=== PATIENT | male | born 1955 | race Caucasian/White ===

== ENCOUNTER 2024-02-24 20:27 | Inpatient (IN) ==
--- NOTE | 2024-02-24 21:05 | Emergency Department Note ---
Impression & Plan Chest pain ADMIT ED Provider Note HPI: History obtained from patient. The patient is a 68-year-old gentleman with history of coronary artery disease, status post triple bypass CABG at [facility] in [place] in 2021, who presents to the emergency department with a chief complaint of lower chest pain. Patient states he has had some pain across the lower portion of his chest for about the past 6 hours. Patient states it has been relatively constant, mild to moderate in nature. Patient denies any nausea or vomiting. On arrival here to the ED the patient is hemodynamically stable, he is saturating well on room air. ROS: - Per HPI Differential Diagnosis: Acute coronary syndrome, gastritis, acute cholecystitis, acute pancreatitis, esophagitis, amongst other potential pathologies. *Outpatient medications and allergy history reviewed. PE: General: Alert HEENT: Normocephalic, trachea midline Eyes: Extraocular eye movement is intact, no scleral erythema Pulmonary: Clear to auscultation bilaterally, no wheezing Cardio: Regular rate and rhythm GI: Abdomen is soft to palpation : No suprapubic tenderness MSK: No evidence of trauma or malformation of the extremities, no edema Skin: No evidence of rash Neuro: Alert, no focal deficits Psychiatric: Cooperative INDEPENDENT INTERPRETATIONS: manager environmental health: (As interpreted by myself): - An order was placed for continuous cardiac monitoring - Patient was noted to be in sinus rhythm with a rate of 70 EKG: (As interpreted by myself): Rate: 60 Rhythm: Normal sinus rhythm Intervals: Within normal limits ST changes: No ST elevation Time: 2035 Chest x-ray: (As interpreted by myself): No acute disease Interventions provided in ED: -IV morphine, IV Zofran, aspirin, GI cocktail Medical Decision Making: IV was established and lab work obtained, patient was placed on collar baster. Lab work shows a mild leukocytosis at 12.19, hemoglobin is normal, platelet count is normal, CMP does not show any critical findings. Troponin is negative x 1. EKG per my interpretation does not show any evidence of any acute ischemic changes. Patient was given IV morphine and IV Zofran here in the ED with improvement in his pain although he did not have complete resolution of his pain. He was given a GI cocktail without any change in his pain. Patient's abdomen is soft and nontender, he has no transaminitis, bilirubin is normal, low suspicion for biliary pathology. In addition his lipase is normal, low suspicion for pancreatitis. Pain is more in the lower chest area as opposed to the epigastric area, given his history of coronary artery disease, I did discuss a period of observation and delta troponin the patient was in agreement. Delta troponin was obtained and is negative. On my reassessment after this, the patient states he is not pain-free. We did discuss admission versus discharge and at this time following discussion with his the patient would like to be admitted to the hospital for further management. I did discuss the patient's presentation with the on-call hospitalist, Dr. Rodriguez, and the patient was placed for admission in stable condition for high risk chest pain. Consultants/Discussions held with other healthcare providers: -Hospitalist, Dr. Rodriguez Disposition discussion held by myself with: -Patient and at bedside Diagnosis: 1. Chest pain, acute, nonspecific 2. History of coronary artery disease status post CABG Disposition: Admission José Ortiz DO Emergency Medicine Past Med/Surg History Problem List (Updated 02/25/24 @ 00:08 by José Ortiz DO) Chest pain (Acute) Corneal abrasion, left (Acute) Social History Smoking Status: Never smoker Feels Safe at Home: Yes Allergies Allergies Allergy/AdvReac Type Severity Reaction Status Date / Time No Known Allergies Allergy Verified 02/24/24 21:10 Home Meds Home Medications Medication Instructions Recorded Confirmed aspirin 81 mg tablet,delayed 81 mg PO HS 02/24/24 02/24/24 release atenolol 25 mg tablet 25 mg PO QPM 02/24/24 02/24/24 atorvastatin 40 mg tablet 40 mg PO QPM 02/24/24 02/24/24 sertraline 100 mg tablet 100 mg PO QAM 02/24/24 02/24/24 sildenafil 50 mg tablet 50 mg PO DIRECTED PRN Sexual 02/24/24 02/24/24 Activity Results & Data (ED) Vital Signs Vital Signs - 24 hr 02/24/24 20:34 02/24/24 20:37 02/24/24 20:37 Temperature 36.8 C Temperature Source Oral Pulse Rate 60 Pulse Rate [Apical] 58 L Pulse Rhythm Regular Pulse Rhythm [Apical] Regular Pulse Strength Normal Pulse Strength [Apical] Normal Respiratory Rate 20 18 Respiratory Effort / Characteristics Non-Labored Spontaneous Non-Labored Spontaneous Respiratory Depth Normal Normal Respiratory Pattern Regular Blood Pressure 153/83 H Blood Pressure [Right Arm] 153/83 H Blood Pressure Mean 106 Blood Pressure Mean [Right Arm] 106 Blood Pressure Position [Right Arm] Lying Pulse Oximetry 97 98 98 Oxygen Delivery Method Room Air Room Air Room Air Sepsis Recent Fever Within 48 Hours No Sepsis New/Unexplained Change in Mental Status N/A Sepsis Action Taken by Nursing No Action Required 02/24/24 20:37 02/24/24 20:39 02/24/24 23:00 Temperature Temperature Source Pulse Rate 58 L 60 Pulse Rate [Apical] 66 Pulse Rhythm Regular Pulse Rhythm [Apical] Regular Pulse Strength Pulse Strength [Apical] Normal Respiratory Rate 18 18 Respiratory Effort / Characteristics Non-Labored Spontaneous Respiratory Depth Normal Respiratory Pattern Regular Blood Pressure Blood Pressure [Right Arm] 155/80 H Blood Pressure Mean Blood Pressure Mean [Right Arm] 105 Blood Pressure Position [Right Arm] Lying Pulse Oximetry 98 99 Oxygen Delivery Method Room Air Room Air Sepsis Recent Fever Within 48 Hours Sepsis New/Unexplained Change in Mental Status Sepsis Action Taken by Nursing Laboratory Data 02/24/24 20:43 02/24/24 20:43 Lab Results 02/24/24 02/24/24 Range/Units 20:43 22:40 WBC 12.19 H (4.8-10.8) K/ul RBC 5.18 (4.70-6.10) M/uL Hgb 15.7 (14.0-18.0) g/dl Hct 46.7 (42.0-52.0) % MCV 90.2 (80.0-100.0) fL MCH 30.3 (25.0-34.0) pg MCHC 33.6 (32.0-36.0) g/dL RDW Std Deviation 41.7 (36.4-46.3) fL RDW Coeff of Rocio 12.7 (11.5-14.5) % Plt Count 227 (130-400) K/uL MPV 9.3 L (9.4-12.4) fL Immature Gran % (Auto) 0.5 % Neut % (Auto) 81.1 % Lymph % (Auto) 11.0 % [place] % (Auto) 6.7 % Eos % (Auto) 0.5 % Baso % (Auto) 0.2 % Neut # (Auto) 9.89 H (1.40-6.50) K/uL Lymph # (Auto) 1.34 (1.20-3.40) K/uL [place] # (Auto) 0.82 H (0.11-0.59) K/uL Eos # (Auto) 0.06 (0.00-0.50) K/uL Baso # (Auto) 0.02 (0.00-0.20) K/uL Immature Gran # (Auto) 0.06 (0.01-0.20) K/uL Sodium 140 (136-145) mmol/L Potassium 4.4 (3.5-5.1) mmol/L Chloride 104 (98-107) mmol/L Carbon Dioxide 29 (21-32) mmol/L Anion Gap 7 (3-11) BUN 18 (6-23) mg/dl Creatinine 0.94 (0.6-1.4) mg/dl Est Cr Clr Drug Dosing 78.5 ml/min Est GFR ( Amer) 96.8 ml/min Est GFR (Non-Af Amer) 83.6 ml/min BUN/Creatinine Ratio 19.1 (10-20) Glucose 112 H (70-99(Fasting)) mg/dl Calcium 9.9 (8.6-10.3) mg/dl Magnesium 1.9 (1.7-2.4) mg/dl Total Bilirubin 1.0 (0.2-1.0) mg/dl AST 19 (13-39) U/L ALT 22 (7-52) U/L Alkaline Phosphatase 87 (34-104) U/L Troponin I High Sens 4.8 6.3 (0-20) pg/ml Total Protein 7.2 (6.0-8.3) gm/dl Albumin 4.7 (3.4-5.0) gm/dl Globulin 2.5 (2.5-4.0) gm/dl Albumin/Globulin Ratio 1.9 (0.9-2) Lipase 32 (11-82) U/L Administered Medications Discontinued Medications Al Hydrox/Mg Hydrox/Simethicone (Aluminum/Magnesium Susp 30 Ml Udc) 15 ml PO NOW STA Stop: 02/24/24 21:30 Last Admin: 02/24/24 21:39 Dose: 15 ml Documented By: IDD Aspirin (Aspirin Chew 324 Mg) 324 mg PO NOW STA Stop: 07/04/24 21:05 Last Admin: 02/24/24 21:19 Dose: 324 mg Documented By: IDD Morphine Sulfate (Morphine Sulfate 4 Mg/Ml 1 Ml Carp\Vial) 4 mg IV NOW STA Stop: 02/24/24 21:03 Last Admin: 02/24/24 21:20 Dose: 4 mg Documented By: IDD Ondansetron HCl (Ondansetron Inj 2 Mg/Ml 2 Ml Vial) 4 mg IV NOW STA Stop: 02/24/24 21:03 Last Admin: 02/24/24 21:19 Dose: 4 mg Documented By: NATALIAD Discharge Plan Visit Data Chief Complaint: Chest Pain Stated Complaint: CHEST PAIN, HAD TRIPLE BYPASS COUPLE YEARS AGO ED Provider: José Ortiz Discharge Problem: Chest pain Forms Stand Alone Forms: [facility] [employer] Prescriptions Prescriptions: No Action atorvastatin 40 mg tablet 40 mg PO QPM sildenafil 50 mg tablet 50 mg PO DIRECTED PRN (Reason: Sexual Activity) sertraline 100 mg tablet 100 mg PO QAM atenolol 25 mg tablet 25 mg PO QPM aspirin 81 mg Tablet,Delayed Release (Dr/Ec) 81 mg PO HS Referrals Referrals: PCP,NO [Physician] - Discharge Problem: Chest pain Qualifiers: Chest pain type: unspecified Qualified Code(s): R07.9 - Chest pain, unspecified
[2024-02-24 21:17] LABS: Albumin Globulin Ratio 1.9 (0.9-2); Albumin Level 4.7 gm/dl (3.4-5.0); BUN Creatinine Ratio 19.1 (10-20); Calcium 9.9 mg/dl (8.6-10.3); Creatinine Clr Calc Pharmacy 78.5 ml/min; Est GFR (African American) 96.8 ml/min; Est GFR (Non-African American) 83.6 ml/min; Globulin 2.5 gm/dl (2.5-4.0); Magnesium 1.9 mg/dl (1.7-2.4); Potassium 4.4 mmol/L (3.5-5.1); Total Protein 7.2 gm/dl (6.0-8.3)
[2024-02-24 21:19] LABS: Basophils # (auto) 0.02 K/uL (0.00-0.20); Basophils % (auto) 0.2 %; Eosinophils # (auto) 0.06 K/uL (0.00-0.50); Eosinophils % (auto) 0.5 %; Hematocrit (blood only) 46.7 % (42.0-52.0); Hemoglobin 15.7 g/dl (14.0-18.0); Immature Granulocytes # (auto) 0.06 K/uL (0.01-0.20); Immature Granulocytes % (auto) 0.5 %; Lymphocytes # (auto) 1.34 K/uL (1.20-3.40); Mean Corpuscular Hemoglobin 30.3 pg (25.0-34.0); Mean Corpuscular Hgb Conc 33.6 g/dL (32.0-36.0); Mean Corpuscular Volume 90.2 fL (80.0-100.0); Mean Platelet Volume 9.3 fL (9.4-12.4); Monocytes # (auto) 0.82 K/uL (0.11-0.59); Monocytes % (auto) 6.7 %; Neutrophils # (auto) 9.89 K/uL (1.40-6.50); Neutrophils % (auto) 81.1 %; Platelet Count 227 K/uL (130-400); RDW Coefficient of Variation 12.7 % (11.5-14.5); RDW Standard Deviation 41.7 fL (36.4-46.3); Red Blood Count 5.18 M/uL (4.70-6.10); White Blood Count 12.19 K/ul (4.8-10.8)
[2024-02-24] MEDS: ONDANSETRON INJ 2 MG/ML 2 ML VIAL IV STA (21:19)
[2024-02-24] MEDS: ASPIRIN CHEW 324 MG PO STA (21:19)
[2024-02-24] MEDS: MoRPHine SULFATE 4 MG/ML 1 ML CARP\\VIAL IV STA (21:20)
[2024-02-24 21:22] LABS: Troponin I High Sensitivity 4.8 pg/ml (0-20)
[2024-02-24] MEDS: ALUMINUM/MAGNESIUM SUSP 30 ML UDC PO STA (21:39)
--- NOTE | 2024-02-25 00:46 | History & Physical Report ---
Date of Service February 25, 2024 Assessment & Plan (1) Chest pain: Plan: 68yo male with history of CAD s/p CABG x 2V performed 2 years ago as well as mitral valve repair presenting with CP that started around 15:00. EKG with no acute ischemic changes Troponin x 2 unremarkable Suspect non-cardiac chest pain, possible GI source? -Observation to medical with telemetry -Repeat troponin -Check 2D echo - ?effusion -Morphine PRN -Zofran PRN -Continue home ASA, Atenolol and Atorvastatin Patient follows with Cardiology in [place]. If enzymes are unremarkable he and his prefer having stress testing performed at their primary hospital History of Present Illness Chief Complaint: chest pain Primary Care Provider: NANNETTE GRAF Hadley Galeana is a 68yo male with history of CAD presenting with chest pain. Patient has history of CABG x 2V and mitral valve repair performed 2 years ago at [facility] in [place]. Patient follows with Dr. Alexis Garcia in [place]. Patient's prior cardiac issues 2 years ago presented predominantly as exertional heartburn. He reports being fairly in-active but denies exertional chest pain or dyspnea. Around 15:00 he developed upper abdominal pain, bandlike in nature with some radiation into the back. Pain 6/10 in severity. He did not take any medication at home. Pain is non-exertional, non-positional and non-pleuritic. No nausea, vomiting, shortness of breath or diaphoresis. Patient still with some discomfort - 4/10 in severity. He had some improvement with the Morphine, no improvement with the Maalox given. No additional complaints at this time. In the ER patient afebrile, HD stable ER Course: Maalox ASA Morphine 4mg IV x 2 doses Allergies Allergy/AdvReac Type Severity Reaction Status Date / Time No Known Allergies Allergy Verified 02/24/24 21:10 Home Medications Medication Instructions Recorded Confirmed Type aspirin 81 mg tablet,delayed 81 mg PO HS 02/24/24 02/24/24 History release atenolol 25 mg tablet 25 mg PO QPM 02/24/24 02/24/24 History atorvastatin 40 mg tablet 40 mg PO QPM 02/24/24 02/24/24 History sertraline 100 mg tablet 100 mg PO QAM 02/24/24 02/24/24 History sildenafil 50 mg tablet 50 mg PO DIRECTED PRN Sexual 02/24/24 02/24/24 History Activity Past Med/Surg History Problem List Chest pain (Acute) Corneal abrasion, left (Acute) Social History Smoking Status: Never smoker Feels Safe at Home: Yes Review of Systems Review of Systems: All systems reviewed & are unremarkable except as noted in HPI & below Physical Exam Physical Exam: General: patient resting comfortably, NAD, non-toxic in appearance, AA&O x 4 Skin: warm, dry, intact, no rashes or lesions HEENT: NC/AT, PERRL, EOMI, anicteric sclera, conjunctiva without injection, external ear normal to inspection and nontender, nares patent, moist mucus membranes, dentition intact, no oropharyngeal lesions, neck supple, trachea midline, no LAD, no thyromegaly, no JVD Heart: +S1/S2, regular, no m/r/g, no chest wall pain Lungs: equal air entry bilaterally, no rales/rhonchi/wheezes Abd: +BS, soft, NT/ND, no masses/organomegaly/ascites Ext: warm, 2+ pulses in UE/LE bilaterally, no clubbing/cyanosis or edema Neuro: nonfocal, patient AA&O x 4, speech intact, no facial droop, moving all extremities on command with equal strength 5/5 Results & Data Results & Data Vital Signs (Past 12 Hours) Vital Signs Temp Pulse Pulse Resp BP BP Pulse Ox 02/25/24 00:40 64 02/24/24 23:00 66 18 155/80 H 99 02/24/24 20:39 60 02/24/24 20:37 58 L 18 98 02/24/24 20:37 58 L 18 153/83 H 98 02/24/24 20:37 98 02/24/24 20:34 36.8 C 60 20 153/83 H 97 O2 Del Method 02/25/24 00:40 02/24/24 23:00 Room Air 02/24/24 20:39 02/24/24 20:37 Room Air 02/24/24 20:37 Room Air 02/24/24 20:37 Room Air 02/24/24 20:34 Room Air Laboratory Results Laboratory Results WBC 12.19 K/ul (4.8-10.8) H 02/24/24 20:43 RBC 5.18 M/uL (4.70-6.10) 02/24/24 20:43 Hgb 15.7 g/dl (14.0-18.0) 02/24/24 20:43 Hct 46.7 % (42.0-52.0) 02/24/24 20:43 MCV 90.2 fL (80.0-100.0) 02/24/24 20:43 MCH 30.3 pg (25.0-34.0) 02/24/24 20:43 MCHC 33.6 g/dL (32.0-36.0) 02/24/24 20:43 RDW Std Deviation 41.7 fL (36.4-46.3) 02/24/24 20:43 RDW Coeff of Rocio 12.7 % (11.5-14.5) 02/24/24 20:43 Plt Count 227 K/uL (130-400) 02/24/24 20:43 MPV 9.3 fL (9.4-12.4) L 02/24/24 20:43 Immature Gran % (Auto) 0.5 % 02/24/24 20:43 Neut % (Auto) 81.1 % 02/24/24 20:43 Lymph % (Auto) 11.0 % 02/24/24 20:43 [place] % (Auto) 6.7 % 02/24/24 20:43 Eos % (Auto) 0.5 % 02/24/24 20:43 Baso % (Auto) 0.2 % 02/24/24 20:43 Neut # (Auto) 9.89 K/uL (1.40-6.50) H 02/24/24 20:43 Lymph # (Auto) 1.34 K/uL (1.20-3.40) 02/24/24 20:43 [place] # (Auto) 0.82 K/uL (0.11-0.59) H 02/24/24 20:43 Eos # (Auto) 0.06 K/uL (0.00-0.50) 02/24/24 20:43 Baso # (Auto) 0.02 K/uL (0.00-0.20) 02/24/24 20:43 Immature Gran # (Auto) 0.06 K/uL (0.01-0.20) 02/24/24 20:43 Sodium 140 mmol/L (136-145) 02/24/24 20:43 Potassium 4.4 mmol/L (3.5-5.1) 02/24/24 20:43 Chloride 104 mmol/L (98-107) 02/24/24 20:43 Carbon Dioxide 29 mmol/L (21-32) 02/24/24 20:43 Anion Gap 7 (3-11) 02/24/24 20:43 BUN 18 mg/dl (6-23) 02/24/24 20:43 Creatinine 0.94 mg/dl (0.6-1.4) 02/24/24 20:43 Est Cr Clr Drug Dosing 78.5 ml/min 02/24/24 20:43 Est GFR ( Amer) 96.8 ml/min 02/24/24 20:43 Est GFR (Non-Af Amer) 83.6 ml/min 02/24/24 20:43 BUN/Creatinine Ratio 19.1 (10-20) 02/24/24 20:43 Glucose 112 mg/dl (70-99(Fasting)) H 02/24/24 20:43 Calcium 9.9 mg/dl (8.6-10.3) 02/24/24 20:43 Magnesium 1.9 mg/dl (1.7-2.4) 02/24/24 20:43 Total Bilirubin 1.0 mg/dl (0.2-1.0) 02/24/24 20:43 AST 19 U/L (13-39) 02/24/24 20:43 ALT 22 U/L (7-52) 02/24/24 20:43 Alkaline Phosphatase 87 U/L (34-104) 02/24/24 20:43 Troponin I High Sens 6.3 pg/ml (0-20) 02/24/24 22:40 Total Protein 7.2 gm/dl (6.0-8.3) 02/24/24 20:43 Albumin 4.7 gm/dl (3.4-5.0) 02/24/24 20:43 Globulin 2.5 gm/dl (2.5-4.0) 02/24/24 20:43 Albumin/Globulin Ratio 1.9 (0.9-2) 02/24/24 20:43 Lipase 32 U/L (11-82) 02/24/24 20:43 Diagnostic Findings CXR with sternotomy wires in place, no edema, infiltrate or PTX ECG Additional Comments: EKG with NSR at 60bpm, normal axis, CJ=097, QRS=82, XUl=013, no acute ischemic changes, evidence of prior anterior infarct PG Care Time/CCT Total # of Minutes Spent Total Time Spent with Patient: Total time spent is greater than 50% in coordination of care (as documented) at patient's floor/unit and/or counseling patient: Coding Level of Care Code 19107 INT INP/OBS CARE 2/55MIN Diagnoses Chest pain R07.9 Chest pain type: unspecified (1) Chest pain Chest pain type: unspecified Qualified Code(s): R07.9 - Chest pain, unspecified
[2024-02-25] MEDS: MoRPHine SULFATE 4 MG/ML 1 ML CARP\\VIAL IV STA (01:38)
[2024-02-25] MEDS ORDERED: ACETAMINOPHEN 325 MG TAB PO PRN (01:50)
[2024-02-25] MEDS ORDERED: MoRPHine SULFATE 2 MG/ML CARP IV PRN (01:50)
--- NOTE | 2024-02-25 07:48 | XRay Report ---
XR chest 1V portable CLINICAL HISTORY: Chest pain, nonspecific TECHNIQUE: Single frontal radiograph of the chest was obtained. Comparison: None available at the time of this dictation. FINDINGS: Median sternotomy wires are unchanged. Calcified aortic knob is seen. The lungs are clear. No evidenc e of pleural effusion or pneumothorax. IMPRESSION: No acute chest disease. ACT 112: Negative or not required by law. Electronically signed by: Jaron Fernandez M.D. 02/25/2024 7:47 AM
[2024-02-25] MEDS: SERTRALINE HCL 100 MG TABLET PO SCH (08:43)
[2024-02-25 12:11] LABS: Basophils # (auto) 0.04 K/uL (0.00-0.20); Basophils % (auto) 0.2 %; Hematocrit (blood only) 48.1 % (42.0-52.0); Hemoglobin 16.2 g/dl (14.0-18.0); Immature Granulocytes # (auto) 0.21 K/uL (0.01-0.20); Immature Granulocytes % (auto) 0.8 %; Lymphocytes # (auto) 0.39 K/uL (1.20-3.40); Lymphocytes % (auto) 1.5 %; Mean Corpuscular Hemoglobin 30.2 pg (25.0-34.0); Mean Corpuscular Hgb Conc 33.7 g/dL (32.0-36.0); Mean Corpuscular Volume 89.7 fL (80.0-100.0); Monocytes # (auto) 2.03 K/uL (0.11-0.59); Neutrophils % (auto) 89.5 %; Platelet Count 203 K/uL (130-400); RDW Standard Deviation 42.3 fL (36.4-46.3); Red Blood Count 5.36 M/uL (4.70-6.10); White Blood Count 25.27 K/ul (4.8-10.8)
[2024-02-25 12:12] LABS: Albumin Globulin Ratio 1.6 (0.9-2); Albumin Level 4.3 gm/dl (3.4-5.0); BUN Creatinine Ratio 14.8 (10-20); Bilirubin,Total 1.5 mg/dl (0.2-1.0); C Reactive Protein 5.72 mg/dl (0-0.5); Calcium 8.9 mg/dl (8.6-10.3); Creatinine Clr Calc Pharmacy 83.9 ml/min; Est GFR (Non-African American) 88.9 ml/min; Globulin 2.7 gm/dl (2.5-4.0); Potassium 4.4 mmol/L (3.5-5.1)
--- NOTE | 2024-02-25 14:08 | Hospitalist Progress Note ---
Date of Service February 25, 2024 Assessment & Plan (1) Acute cholecystitis: Plan: patient presented yesterday with upper abdominal pain. at that time he had a mild leukocytosis and LFTs were normal. troponins negative x 4. EKG w/o ischemic changes. Echo with normal EF and normal LV wall motion. tele wnl. WBC count ajith to 25 today and t.bili ajith mildly as well. he has had continuous upper abdominal pain since it began yesterday early afternoon. in light of the above I obtained STAT CT a/p which showed findings worrisome for acute cholecystitis. no CBD dilatation was seen. in light of CT findings I made him NPO, started IV fluids, obtained blood cx's x 2 sets, and initiated IV unasyn to treat cholecystitis. I spoke directly to Dr Bass from gen surg who will consult and likely recommend lap mckenzie. plan to repeat his labs including CBC, LFTs, etc in am. cont morphine prn pain. low threshold to obtain MRCP if total bili continues to rise. (2) Leukocytosis: Plan: 2nd to #1 there is bladder wall thickening on CT - obtain u/a and urine cx; but suspect elevated wbc is due to #1 (3) Elevated bilirubin: Plan: 2nd to #1 obtain repeat LFTs am (4) CAD (coronary artery disease): Plan: s/p 2-vessel CABG 2021 in [place] also had MV repair at that time no evidence that his current symptoms are due to ischemia cont asa cont BB cont statin (5) Hyperglycemia: Plan: check a1c am (6) Abnormal CT of the abdomen: Plan: ?bladder wall thickening obtain u/a and urine cx (7) Hyperlipidemia: Plan: cont statin Plan left message for pt's son on his voicemail this evening change observation status to full admission status appreciate Dr Bass's assistance Admission and Anticipated Discharge Date Admission Date: February 25, 2024 Subjective patient reports that since his upper abdominal pain began yesterday afternoon the pain has persisted the pain started around the time he was eating chips & dip he reports very little appetite today the pain was in a band-like fashion in the upper abdomen yesterday but now is worst in the high epigastric region & the RUQ no vomiting no chest pain no dyspnea no fevers the pain he is experiencing is very different than what he had prior to his CABG procedure in 2022 Review of Systems Review of Systems: gen - no fevers or chills cv - no chest pain, no orthopnea, no PND pulm - no cough - no dysuria GI - see subjective portion of note Physical Exam Physical Exam: gen - overweight, NAD; looks ill but nontoxic eyes - no icterus mouth - MM dry neck - no JVD heart - RRR, s1 s2, no murmur lungs - CTA b/l abd - soft, very tender to palpation RUQ to deep palpation, +Street's sign; no peritoneal signs; no HSM; nondistended ext - no edema, pulses 2+ b/l skin - no jaundice psych - a/o x 3 Results & Data Results & Data Vital Signs (Past 12 Hours) Vital Signs Pulse Pulse Resp BP BP Pulse Ox O2 Del Method 02/25/24 07:05 94 H 02/25/24 07:00 96 H 18 130/76 91 Room Air 02/25/24 04:57 93 H 20 147/85 H 91 02/25/24 03:08 92 H 02/25/24 02:23 75 18 169/89 H 96 Room Air Laboratory Results Laboratory Results - last 48 hr 02/24/24 02/24/24 02/25/24 20:43 22:40 04:27 WBC 12.19 H RBC 5.18 Hgb 15.7 Hct 46.7 MCV 90.2 MCH 30.3 MCHC 33.6 RDW Std Deviation 41.7 RDW Coeff of Rocio 12.7 Plt Count 227 MPV 9.3 L Immature Gran % (Auto) 0.5 Neut % (Auto) 81.1 Lymph % (Auto) 11.0 [place] % (Auto) 6.7 Eos % (Auto) 0.5 Baso % (Auto) 0.2 Neut # (Auto) 9.89 H Lymph # (Auto) 1.34 [place] # (Auto) 0.82 H Eos # (Auto) 0.06 Baso # (Auto) 0.02 Immature Gran # (Auto) 0.06 Sodium 140 Potassium 4.4 Chloride 104 Carbon Dioxide 29 Anion Gap 7 BUN 18 Creatinine 0.94 Est Cr Clr Drug Dosing 78.5 Est GFR ( Amer) 96.8 Est GFR (Non-Af Amer) 83.6 BUN/Creatinine Ratio 19.1 Glucose 112 H Calcium 9.9 Magnesium 1.9 Total Bilirubin 1.0 AST 19 ALT 22 Alkaline Phosphatase 87 Troponin I High Sens 4.8 6.3 6.1 C-Reactive Protein Total Protein 7.2 Albumin 4.7 Globulin 2.5 Albumin/Globulin Ratio 1.9 Lipase 32 Urine Color Urine Appearance Urine pH Ur Specific [place] Urine Protein Urine Glucose (UA) Urine Ketones Urine Blood Urine Nitrite Urine Bilirubin Urine Urobilinogen Ur Leukocyte Esterase Urine WBC (Auto) Urine RBC (Auto) U Hyaline Cast (Auto) U Epithel Cells (Auto) Urine Bacteria (Auto) 02/25/24 02/25/24 10:17 11:34 WBC 25.27 H D RBC 5.36 Hgb 16.2 Hct 48.1 MCV 89.7 MCH 30.2 MCHC 33.7 RDW Std Deviation 42.3 RDW Coeff of [place] 13.0 Plt Count 203 MPV 9.0 L Immature Gran % (Auto) 0.8 Neut % (Auto) 89.5 Lymph % (Auto) 1.5 [place] % (Auto) 8.0 Eos % (Auto) 0.0 Baso % (Auto) 0.2 Neut # (Auto) 22.60 H Lymph # (Auto) 0.39 L [place] # (Auto) 2.03 H Eos # (Auto) 0.00 Baso # (Auto) 0.04 Immature Gran # (Auto) 0.21 H Sodium 135 L Potassium 4.4 Chloride 103 Carbon Dioxide 24 Anion Gap 8 BUN 13 Creatinine 0.88 Est Cr Clr Drug Dosing 83.9 Est GFR ( Amer) 103.0 Est GFR (Non-Af Amer) 88.9 BUN/Creatinine Ratio 14.8 Glucose 221 H Calcium 8.9 Magnesium Total Bilirubin 1.5 H AST 27 ALT 34 Alkaline Phosphatase 81 Troponin I High Sens 4.8 C-Reactive Protein 5.72 H Total Protein 7.0 Albumin 4.3 Globulin 2.7 Albumin/Globulin Ratio 1.6 Lipase Diagnostic Findings Chest X-Ray 02/24/24 20:37 XR chest 1V portable CLINICAL HISTORY: Chest pain, nonspecific TECHNIQUE: Single frontal radiograph of the chest was obtained. Comparison: None available at the time of this dictation. FINDINGS: Median sternotomy wires are unchanged. Calcified aortic knob is seen. The lungs are clear. No evidence of pleural effusion or pneumothorax. IMPRESSION: No acute chest disease. ACT 112: Negative or not required by law. Electronically signed by: Jaron Fernandez M.D. 02/25/2024 7:47 AM Abdomen/Pelvis CT 02/25/24 14:06 CT abd pelvis IV con only CLINICAL HISTORY: RUQ pain, elevated WBC/bilirubin; ?cholecystitis? TECHNIQUE: Helical axial images of the abdomen and pelvis were obtained and displayed. Automated dose lowering techniques and/or adjustment according to patient size were utilized for this exam. This exam was performed with intravenous contrast. CT DOSE: 1306.85 mGy.cm COMPARISON: None available at the time of this dictation. FINDINGS: Lower chest: Bibasilar atelectasis versus scarring is seen. Severe athe rosclerotic disease is seen in the coronary arteries. Liver: Unremarkable. No focal lesions are seen. Gallbladder and biliary tree: The gallbladder wall measures 3.6 mm with surrounding fat stranding. No intra- or extrahepatic biliary ductal dilation. Pancreas: Unremarkable, no focal lesions. Spleen: Unremarkable. Adrenals: Unremarkable. Kidneys and ureters: Unremarkable. Bladder: Diffuse homogeneous wall thickening is seen. Reproductive organs: Prostatomegaly is seen. Bowel: Diverticulosis is seen without diverticulitis. The appendix is normal. A hiatal hernia is seen. Lymph nodes Retroperitoneal: Subcentimeter lymph nodes are noted. Pelvic: Unremarkable. Mesenteric: Unremarkable. Peritoneum: Normal. Vessels: Atherosclerotic calcifications are seen. Abdominal wall: Unremarkable. Bones: Degenerative changes in the visualized spine. IMPRESSION: Wall thickening and pericholecystic fat stranding compatible with acute cholecystitis. ACT 112: Negative or not required by law. Electronically signed by: Jaron Fernandez M.D. 02/25/2024 3:06 PM PG Care Time/CCT Total # of Minutes Spent Total Time Spent with Patient: Total time spent is greater than 50% in coordination of care (as documented) at patient's floor/unit and/or counseling patient: Coding Level of Care Code 56608 SUB INP/OBS CARE 3/50MIN Diagnoses Acute cholecystitis K81.0 Leukocytosis D72.829 Elevated bilirubin R17 CAD (coronary artery disease) I25.[address] of the abdomen R93.5 Hyperlipidemia E78.5
[2024-02-25] MEDS: ONDANSETRON INJ 2 MG/ML 2 ML VIAL IV PRN (14:20)
[2024-02-25] MEDS: MoRPHine SULFATE 2 MG/ML CARP ONE (14:20)
[2024-02-25] MEDS: MoRPHine SULFATE 2 MG/ML CARP IV PRN (14:21)
[2024-02-25] MEDS: OPTIRAY 320 100ml IV ONE (14:39)
--- NOTE | 2024-02-25 15:07 | CT Scan Report ---
CT abd pelvis IV con only CLINICAL HISTORY: RUQ pain, elevated WBC/bilirubin; ?cholecystitis? TECHNIQUE: Helical axial images of the abdomen and pelvis were obtained and displayed. Automated dose lowering techniques and/or adjustment according to patient size were utilized for this exam. This e xam was performed with intravenous contrast. CT DOSE: 1306.85 mGy.cm COMPARISON: None available at the time of this dictation. FINDINGS: Lower chest: Bibasilar atelectasis versus scarring is seen. Severe atherosclerotic disease is seen i n the coronary arteries. Liver: Unremarkable. No focal lesions are seen. Gallbladder and biliary tree: The gallbladder wall measures 3.6 mm with surrounding fat stranding. No intra- or extrahepatic biliary ductal dilation. Pancreas: Unremarkable, no focal lesions. Spleen: Unremarkable. Adrenals: Unremarkable. Kidneys and ureters: Unremarkable. Bladder: Diffuse homogeneous wall thickening is seen. Reproductive organs: Prostatomegaly is seen. Bowel: Diverticulosis is seen without diverticulitis. The appendix is normal. A hiatal hernia is seen . Lymph nodes Retroperitoneal: Subcentimeter lymph nodes are noted. Pelvic: Unremarkable. Mesenteric: Unremarkable. Peritoneum: Normal. Vessels: Atherosclerotic calcifications are seen. Abdominal wall: Unremarkable. Bones: Degenerative changes in the visualized spine. IMPRESSION: Wall thickening and pericholecystic fat stranding compatible with acute cholecystitis. ACT 112: Negative or not required by law. Electronically signed by: Jaron Fernandez M.D. 02/25/2024 3:06 PM
[2024-02-25] MEDS: LACTATED RINGER'S 1,000 ML IV SCH (15:10)
[2024-02-25] MEDS: AMPICILLIN/SULBACTAM SOD 3,000 MG in SODIUM CHLOR 0.9% MINI-B 100 ML IV SCH (16:48)
--- NOTE | 2024-02-25 19:11 | Surgery Consultation ---
Date of Consultation February 25, 2024 Assessment & Plan (1) Cholecystitis: The patient has been admitted on the hospital service. From surgery perspective we recommend proceeding as follows: Patient does have significant underlying heart disease but has undergone open heart surgery as described in history of present illness. His EKG was not concerning for ischemic changes and he did have an echocardiogram that showed normal left ventricular function. The patient also reports an excellent functional status N.p.o. status has been implemented and should be maintained IV fluids to be provided for hydration He is receiving antibiotics in the form of Unasyn which should continue Analgesics to be provided Antiemetics to be provided Serial labs should be followed and have been ordered for the morning. The patient is tentatively scheduled for cholecystectomy by Dr. Jon Bass of [facility] physician group general surgery on 02/26/2024. Additional recommendations to be forthcoming based on pending labs in the morning, surgical findings, and his postoperative recovery thereafter SCDs to be used for DVT prevention, no chemical means due to planned surgery Supervising Physician Co-Signing Physician Notes I personally saw and evaluated the patient Galo Rizvi PA-C and agree with the assessment and plan. 68-year-old male with acute cholecystitis CT images and results personally viewed and interpreted by myself Start IV antibiotics, make n.p.o. Will plan on laparoscopic cholecystectomy, possible open, possible IOC tomorrow History of Present Illness Reason for Consultation: Cholecystitis Attending Physician: Rigo Daniels MD History of Present Illness This is a 68-year-old male who presented the emergency department at [facility] earlier today secondary to chest pain. The patient also admits to pain in his abdomen and his upper abdomen. Patient notes that this pain began after eating some picnic food including vegetables, dip, and chips. He has never experienced this pain before and specifically denies any postprandial pain over the past several weeks to months. He did not report any modifying factors to the pain other that the pain improved with sensation of eating. He notes he has never had any abdominal surgeries in the past. The patient notes that he had open heart surgery in [place], [place] in 2021. Patient said that he underwent coronary bypass grafting and mitral valve repair. He does not take any blood thinners. The patient notes that he has his primary residence in [place] and therefore does not have a local shredding machine tender but did see his shredding machine tender in [place] approximately 11 months ago where he was given what he describes as a clean bill of health. The patient notes with his day-to-day activities he does not get chest pain or shortness of breath and notes that he can easily negotiate up 4 flights of steps and easily walk a mile on a flat surface without any chest pain or shortness of breath. Since arrival to [facility] the patient has had labs and imaging which I independent reviewed. A chest x-ray showed no evidence of pneumonia. A CT scan of the abdomen pelvis showed that the gallbladder had gallbladder wall thickening measuring approximately 3.6 mm with surrounding fat stranding. There is no intra or extrahepatic biliary ductal dilatation. These findings were felt to be compatible with acute cholecystitis. Labs included CBC her white blood cell count was elevated 25.2. Hemoglobin, hematocrit, and platelet count were normal. Chemistry profile showed sodium was 135 with a normal potassium. BUN and creatinine were both normal. Patient's total bilirubin was elevated at 1.5. His AST, ALT, and alkaline phosphatase were all within normal range and nonelevated. His lipase was nonelevated. The patient did have an EKG that showed normal sinus rhythm. There did not appear to be any changes indicative of acute ischemia. Patient also had an echocardiogram this admission where his left ventricular ejection fraction was noted to be 65 to 70% with no regional wall motion abnormalities. There is mild aortic regurgitation. At the time of my interview he was resting comfortably in bed he was in no distress. Concerning past medical history the patient has a history of mitral valve disease as well as coronary artery disease Concerning past surgical history he has undergone open heart surgery as described above. Concerning social history he does not smoke Allergies Allergy/AdvReac Type Severity Reaction Status Date / Time No Known Allergies Allergy Verified 02/24/24 21:10 Home Medications Medication Instructions Recorded Confirmed Type aspirin 81 mg tablet,delayed 81 mg PO HS 02/24/24 02/24/24 History release atenolol 25 mg tablet 25 mg PO QPM 02/24/24 02/24/24 History atorvastatin 40 mg tablet 40 mg PO QPM 02/24/24 02/24/24 History sertraline 100 mg tablet 100 mg PO QAM 02/24/24 02/24/24 History sildenafil 50 mg tablet 50 mg PO DIRECTED PRN Sexual 02/24/24 02/24/24 History Activity Patient History Social History Smoking Status: Never smoker Hx Alcohol Use: No Hx Substance Use: No Preferred Language: Azeri Communication Ability: Effective Block Greaser Required: No Beliefs That Will Affect Care: None Current Living Situation: Spouse Other Information That Helps Us Care for You: No Feels Safe at Home: Yes Safety Concerns: Feels Safe At This Time Assistive Devices: Glasses Review of Systems Review of Systems: All systems reviewed & are unremarkable except as noted in HPI & below Physical Exam Constitutional: WD/WN, vitals as above Eyes: + anicteric sclerae ENMT: Ears: no hearing impairment and no external ear abnormality Mouth: no oropharynx abnormality Neck: trachea midline Respiratory: normal respiratory effort; no respiratory distress and no labored breathing Cardiovascular: Rate/Rhythm: regular rate and regular rhythm Vessels: dorsalis pedis pulses present Gastrointestinal (Abdomen): Abdomen is soft, nonrigid, nondistended. There is no rebound tenderness or guarding but patient did have some minor pain with palpation greatest in the right upper quadrant of the abdomen Musculoskeletal: No calf tenderness Skin: no rashes Neurologic: moves all extremities Psychiatric: A+Ox3, euthymic affect Results & Data Vital Signs (Past 12 Hours) Vital Signs Temp Pulse Pulse Resp BP BP Pulse Ox 02/25/24 17:57 86 02/25/24 14:55 37.1 C 90 18 149/81 H 93 02/25/24 14:00 95 H 24 02/25/24 13:30 98 H 22 02/25/24 13:06 101 H 18 02/25/24 12:42 90 20 02/25/24 12:03 94 H 21 02/25/24 11:36 100 H 17 02/25/24 11:00 92 H 19 02/25/24 10:30 93 H 21 02/25/24 10:21 96 H 17 02/25/24 08:00 142/91 H 02/25/24 08:00 142/91 H 02/25/24 08:00 142/91 H 02/25/24 07:30 98 H 18 92 O2 Del Method 02/25/24 17:57 02/25/24 14:55 Room Air 02/25/24 14:00 02/25/24 13:30 02/25/24 13:06 02/25/24 12:42 02/25/24 12:03 02/25/24 11:36 02/25/24 11:00 02/25/24 10:30 02/25/24 10:21 02/25/24 08:00 02/25/24 08:00 02/25/24 08:00 02/25/24 07:30 PG Care Time/CCT Total # of Minutes Spent Total Time Spent with Patient: Total time spent is greater than 50% in coordination of care (as documented) at patient's floor/unit and/or counseling patient: Coding Level of Care Code 80938 INT INP/OBS CARE 375MIN Diagnoses Cholecystitis K81.9
--- NOTE | 2024-02-25 19:32 | XCELERA ---
[id number]
[2024-02-25] MEDS: ATORVASTATIN 40 MG TAB PO SCH (20:37)
[2024-02-25] MEDS: ASPIRIN 81 MG ECTAB PO SCH (20:38)
[2024-02-25] MEDS: ATENOLOL 25 MG TABLET PO SCH (21:00)
--- NOTE | 2024-02-25 22:43 | Electrocardiogram Report ---
Test Reason : Blood Pressure : / mmHG Vent. Rate : 060 BPM Atrial Rate : 060 BPM P-R Int : 152 ms QRS Dur : 082 ms QT Int : 424 ms P-R-T Axes : 022 -02 023 degrees QTc Int : 424 ms Normal sinus rhythm Anteroseptal infarct , age undetermined Abnormal ECG No previous ECGs available Confirmed by Roman Harrington ([id number]) on 02/25/2024 10:43:26 PM Referred By: REFERRED SELF Confirmed By:Roman Harrington
[2024-02-26 01:39] LABS: Appearance Urine Clear (Clear); Bacteria Urine Automated None Seen (None Seen); Bilirubin Urine Negative (Negative); Blood Urine Negative (Negative); Cast Urine Automated 0-2 /lpf (0-2); Color Urine Yellow; Epithelial Cell Urine Auto 0-2 /hpf (0-2); Glucose Urine UA 2+ (Negative); Ketones Urine Negative (Negative); Leukocyte Esterase Urine Negative (Negative); Nitrite Urine Negative (Negative); Protein Urine 1+ (Negative); Specific Gravity Urine > 1.045 (1.000-1.030); Urobilinogen Urine Negative (Negative); WBC Urine Automated 0-5 /hpf (0-5); pH Urine 6.5 (4.5-7.5)
--- NOTE | 2024-02-26 05:36 | Surgery Progress Note ---
Date of Service February 26, 2024 Assessment & Plan (1) Cholecystitis: Plan: The patient has been admitted on the hospital service. From surgery perspective we recommend proceeding as follows: Patient is tentatively scheduled for cholecystectomy with Dr. Jon Bass today AM labs are pendingjust check when available Continue n.p.o. status Continue IV fluids until diet can be advanced postoperatively Continue antibiotics in the form of Unasyn Continue analgesics Continue antibiotics Continue use of SCDs for DVT prevention Admission and Anticipated Discharge Date Admission Date: February 25, 2024 Supervising Physician Co-Signing Physician Notes I personally saw and evaluated the patient Galo Rizvi PA-C and agree with the assessment and plan. 68-year-old male with acute cholecystitis Will plan on laparoscopic cholecystectomy, possible open, possible IOC today Consent was obtained, risks discussed including bleeding, infection, bile leak, ductal injury Subjective Patient is resting comfortably in bed at this time. He denies any nausea or vomiting. He denies any worsening abdominal pain. He denies any fevers, shakes, or chills. Physical Exam Gastrointestinal (Abdomen): Abdomen is soft and nondistended. There is no rebound tenderness or guarding. Patient had slight pain with palpation in the right upper quadrant. Results & Data Vital Signs (Past 12 Hours) Vital Signs Temp Pulse Pulse Resp BP Pulse Ox O2 Del Method 02/26/24 03:58 37.4 C 78 16 142/77 H 92 Room Air 02/25/24 23:15 37.1 C 92 H 18 157/82 H 93 Room Air 02/25/24 21:57 89 02/25/24 19:46 37.3 C 74 16 152/81 H 94 Room Air 02/25/24 17:57 86 PG Care Time/CCT Total # of Minutes Spent Total Time Spent with Patient: Total time spent is greater than 50% in coordination of care (as documented) at patient's floor/unit and/or counseling patient: Coding Level of Care Code 87565 SUB INP/OBS CARE 09/16MIN Diagnoses Cholecystitis K81.9
[2024-02-26 06:34] LABS: Hematocrit (blood only) 47.7 % (42.0-52.0); Hemoglobin 15.9 g/dl (14.0-18.0); Mean Corpuscular Hemoglobin 30.8 pg (25.0-34.0); Mean Corpuscular Hgb Conc 33.3 g/dL (32.0-36.0); Mean Corpuscular Volume 92.3 fL (80.0-100.0); Mean Platelet Volume 9.4 fL (9.4-12.4); Platelet Count 210 K/uL (130-400); RDW Coefficient of Variation 13.3 % (11.5-14.5); RDW Standard Deviation 45.3 fL (36.4-46.3); Red Blood Count 5.17 M/uL (4.70-6.10)
[2024-02-26 06:55] LABS: Bilirubin Direct 0.3 mg/dl (0-0.2); Calcium 9.2 mg/dl (8.6-10.3); Creatinine Clr Calc Pharmacy 73.8 ml/min; Est GFR (African American) 89.9 ml/min; Est GFR (Non-African American) 77.5 ml/min; Potassium 4.2 mmol/L (3.5-5.1); Total Protein 6.9 gm/dl (6.0-8.3)
[2024-02-26] MEDS ORDERED: ROCURONIUM BROMIDE 10 MG/ML 5 ML VIAL IV ONE (07:01)
[2024-02-26] MEDS ORDERED: ONDANSETRON INJ 2 MG/ML 2 ML VIAL ONE (07:01)
[2024-02-26] MEDS ORDERED: DEXAMETHASONE SOD INJ 4 MG/ML VIAL ONE (07:01)
[2024-02-26] MEDS ORDERED: NEOSTIGMINE METHYLSULFATE 1 MG/ML 10ML VIAL ONE (07:01)
[2024-02-26] MEDS ORDERED: GLYCOPYRROLATE 0.2 MG/ML VIAL ONE (07:01)
[2024-02-26] MEDS ORDERED: PROPOFOL IV EMULSION 10 MG/ML 20 ML VIAL IV ONE (07:01)
[2024-02-26] MEDS ORDERED: LIDOCAINE 2% 2 ML VIAL/AMP(20MG/ML) INFIL ONE (07:01)
[2024-02-26] MEDS ORDERED: MIDAZOLAM HCL 1 MG/ML 2ML VIAL ONE (07:02)
[2024-02-26] MEDS ORDERED: fentaNYL citrate PF 100 MCG/2 ML VIAL ONE (07:02)
--- NOTE | 2024-02-26 07:17 | Anesthesiology Consultation ---
Date of Service February 26, 2024 Assessment & Plan Chart Review Chart Review: Acceptable Risk for Surgery and Patient NOT seen in Pre Admission Testing Consults Requested none History Surgery Operation Date: 02/26/24 07:30 Proposed Procedures p Laparoscopic Cholecystectomy - Jon Bass DO Height/Weight Height: 5 ft 6 in Weight: 86.3 kg Allergies Allergy/AdvReac Type Severity Reaction Status Date / Time No Known Allergies Allergy Verified 02/24/24 21:10 Medications Home Medications Medication Instructions Recorded Confirmed Last Taken aspirin 81 mg tablet,delayed 81 mg PO HS 02/24/24 02/24/24 02/23/24 release atenolol 25 mg tablet 25 mg PO QPM 02/24/24 02/24/24 02/23/24 atorvastatin 40 mg tablet 40 mg PO QPM 02/24/24 02/24/24 02/23/24 sertraline 100 mg tablet 100 mg PO QAM 02/24/24 02/24/24 02/24/24 sildenafil 50 mg tablet 50 mg PO DIRECTED PRN Sexual 02/24/24 02/24/24 Unknown Activity Active Medications Generic Name Dose Route Start Last Admin Trade Name Mikeyq PRN Reason Stop Dose Admin Aspirin 81 mg 02/25/24 21:00 02/25/24 20:38 Aspirin 81 Mg Ectab PO 03/26/24 20:59 Not Given HS [facility] Atenolol 25 mg 02/25/24 21:00 02/25/24 21:00 Atenolol 25 Mg Tablet PO 03/26/24 20:59 25 mg QPM TREY Administration Atorvastatin Calcium 40 mg 02/25/24 21:00 02/25/24 20:37 Atorvastatin 40 Mg Tab PO 03/26/24 20:59 40 mg QPM TREY Administration Lactated Ringer's 1,000 mls @ 125 mls/hr 02/25/24 14:15 02/26/24 01:04 Lr IV 03/26/24 14:14 125 mls/hr .Q8H TREY Administration Ampicillin Sodium/Sulbactam 100 mls @ 100 mls/hr 02/25/24 15:30 02/26/24 04:32 Sodium 3,000 mg/ Sodium IV 03/06/24 15:29 Infused Chloride Q6H TREY Infusion Morphine Sulfate 2 mg 02/25/24 14:07 02/25/24 20:37 Morphine Sulfate 2 Mg/Ml Carp IV 03/10/24 01:49 2 mg Q4H PRN Administration Pain Ondansetron HCl 4 mg 02/25/24 01:50 02/25/24 20:36 Ondansetron Inj 2 Mg/Ml 2 Ml Vial IV 03/26/24 01:49 4 mg Q6H PRN Administration Nausea And Vomiting Sertraline HCl 100 mg 02/25/24 09:00 02/25/24 08:43 Sertraline Hcl 100 Mg Tablet PO 03/26/24 08:59 100 mg QAM TREY Administration NPO Date Last Intake of Fluids: 02/25/24 Time Last Intake of Fluids: 21:00 Date Last Intake of Solids: 02/25/24 Social History Smoking Status: Never smoker Hx Alcohol Use: No Alcohol type: beer alcohol intake frequency: holidays/special occasions only Hx Substance Use: No Physical Exam Vital Signs Last Vital Signs Temp 37.4 C 02/26/24 03:58 Pulse 78 02/26/24 03:58 Resp 16 02/26/24 03:58 BP 142/77 H 02/26/24 03:58 Pulse Ox 92 02/26/24 03:58 O2 Del Method Room Air 02/26/24 03:58 Constitutional WD/WN, vitals as above Eyes + anicteric sclerae ENMT Ears: no hearing impairment and no external ear abnormality Mouth: no oropharynx abnormality Neck trachea midline Respiratory normal respiratory effort; no respiratory distress and no labored breathing Cardiovascular Rate/Rhythm: regular rate and regular rhythm Vessels: dorsalis pedis pulses present Skin no rashes Neurologic moves all extremities Psychiatric A+Ox3, euthymic affect Testing Laboratory Results 02/26/24 06:01 02/26/24 06:01 Urine Color Yellow 02/26/24 00:50 Urine Appearance Clear (Clear) 02/26/24 00:50 Urine pH 6.5 (4.5-7.5) 02/26/24 00:50 Ur Specific [place] > 1.045 (1.000-1.030) H 02/26/24 00:50 Urine Protein 1+ (Negative) H 02/26/24 00:50 Urine Glucose (UA) 2+ (Negative) H 02/26/24 00:50 Urine Ketones Negative (Negative) 02/26/24 00:50 Urine Nitrite Negative (Negative) 02/26/24 00:50 Ur Leukocyte Esterase Negative (Negative) 02/26/24 00:50 Urine WBC (Auto) 0-5 /hpf (0-5) 02/26/24 00:50 Urine RBC (Auto) 3-5 /hpf (0-2) H 02/26/24 00:50 U Hyaline Cast (Auto) 0-2 /lpf (0-2) 02/26/24 00:50 U Epithel Cells (Auto) 0-2 /hpf (0-2) 02/26/24 00:50 Urine Bacteria (Auto) None Seen (None Seen) 02/26/24 00:50
[2024-02-26 07:20] LABS: INR 1.1 (0.9-1.1); Partial Thromboplastin Ratio 1.2; Partial Thromboplastin Time 31 Seconds (21-31)
[2024-02-26 07:23] LABS: Estimated Average Glucose 128 mg/dl; Hemoglobin A1C 6.1 % (4.5-5.6)
[2024-02-26] MEDS ORDERED: ATROPINE SULFATE 0.1 MG/ML 10ML SYR IV PRN (07:25)
[2024-02-26] MEDS ORDERED: DROPERIDOL 5 MG/2 ML VIAL IV PRN (07:25)
[2024-02-26] MEDS ORDERED: fentaNYL citrate PF 100 MCG/2 ML VIAL IV PRN (07:25)
[2024-02-26] MEDS ORDERED: ePHEDrine sulfate 50 MG/ML AMP IV PRN (07:25)
[2024-02-26] MEDS: FLOSEAL HEMOSTATIC MATRIX 10ML TOP ONE (08:10)
[2024-02-26] MEDS ORDERED: SUGAMMADEX SODIUM 200 MG/2 ML VIAL IV ONE (08:41)
[2024-02-26] MEDS: BUPIVACAINE/EPINEPHRINE 0.25% 1:200,000 30 ML VIAL ONE (08:51)
--- NOTE | 2024-02-26 09:04 | Post Operative Brief Note ---
PG Immediate Post Op with CF Date of Surgery February 26, 2024 Pre & Post Diagnosis Operation Date: 02/26/24 07:30 Pre-Op Diagnosis: Acute Cholecystitis Post-Op Diagnosis: Acute Cholecystitis I identified the patient and participated in the time-out.: Yes Procedure Operation Date: 02/26/24 07:30 Actual Procedures p Laparoscopic Cholecystectomy(Not Applicable) - Jon Bass DO Surgeon Jon Bass DO Rf Technician None Estimated Blood Loss 25 Findings Consistent with Post-Op Diagnosis Gangrenous gallbladder Specimens Specimen Description: A. gallbladder Anesthesia Type General Complications none Disposition Disposition: Recovery Room
--- NOTE | 2024-02-26 09:08 | Operative Report ---
PG Post Operative Report Pre & Post Diagnosis Operation Date: 02/26/24 07:30 Pre-Op Diagnosis: Acute Cholecystitis Post-Op Diagnosis: Acute Cholecystitis I identified the patient and participated in the time-out.: Yes Procedure Operation Date: 02/26/24 07:30 Actual Procedures p Laparoscopic Cholecystectomy(Not Applicable) - Jon Bass DO Surgeon Jon Bass DO Line Installer None Estimated Blood Loss 25 Findings Consistent with Post-Op Diagnosis Gangrenous cholecystitis Fluids see anesthesia record Specimens Gallbladder to pathology Drains None Anesthesia Type General Complications none Disposition Disposition: Recovery Room Indications 68 yo male with acute cholecystitis Description of Procedure The patient was brought to the operating room and placed in the supine position with both arms extended. At this time he underwent general endotracheal anesthesia without any problems. He was given appropriate pre-operative antibiotics. His abdomen prepped and draped in the usual sterile fashion. A timeout was called, the procedure was verified as Laparoscopic cholecystectomy, possible open, possible intra-operative cholangiogram. Surgical, nursing and anesthesia teams agreed and the procedure was begun. After injection of 0.25% Marcaine with epinephrine, a supraumbilical vertical incision was made and carried down to the fascia using S-retractors. The abdominal wall was then elevated with towel clamps and abdomen entered using the Veress needle confirming position using the saline drop test. Pneumoperitoneum was established. 5mm trocar was placed. Laparoscope was introduced. No injury from entry into the abdomen was visualized after inspection of the abdomen. Three further ports were placed under direct visualization. One 11mm in the subxiphoid region and two 5mm in the RUQ. At this time the abdomen was inspected and the gallbladder identified. The gallbladder fundus was grasped and retracted cephalad. The gallbladder infundibulum was then grasped and retracted laterally. The gallbladder was distended, thickened and gangrenous. This was needle decompressed in order to better manipulate it. The cystic duct and cystic artery were then identified and skeletonized. The critical view of safety was obtained. They were both then clipped twice proximally and once distally and then divided using scissors. The gallbladder was then taken off of the liver bed using electrocautery and placed in an endocatch bag and removed from the subxiphoid port. The liver bed was then inspected and no bile leak or bleeding was evident. The subxiphoid port was then closed using 0-Vicryl using the suture passer. The trocars were then removed under direct visualization and no bleeding was present. Abdomen was desufflated. The skin was then closed using 4-0 Monocryl in a subcuticular fashion. Surgical glue was applied. Needle and sponge counts were correct x 2. At this time the patient was awoken from anesthesia and extubated having remained stable throughout the entire case. The patient was then transported to PACU in stable condition. I attest to the content of the Intraoperative Record and any orders documented therein. Any exceptions are noted below.
--- NOTE | 2024-02-26 10:05 | Anesthesiology Progress Note ---
Date of Service February 26, 2024 Anesthesia Post Procedure Vital Signs Vital Signs: Temp Pulse Pulse Resp BP Pulse Ox O2 Del Method 02/26/24 09:45 79 18 118/70 94 Nasal Cannula 02/26/24 09:35 37.1 C 82 18 105/67 94 Nasal Cannula 02/26/24 09:25 83 16 113/74 94 Oxymask 02/26/24 09:15 80 18 122/72 94 Oxymask 02/26/24 09:05 36.2 C L 81 12 137/83 95 Oxymask 02/26/24 07:38 82 02/26/24 03:58 37.4 C 78 16 142/77 H 92 Room Air 02/25/24 23:15 37.1 C 92 H 18 157/82 H 93 Room Air 02/25/24 21:57 89 02/25/24 19:46 37.3 C 74 16 152/81 H 94 Room Air 02/25/24 17:57 86 02/25/24 14:55 37.1 C 90 18 149/81 H 93 Room Air 02/25/24 14:00 95 H 24 02/25/24 13:30 98 H 22 02/25/24 13:06 101 H 18 02/25/24 12:42 90 20 02/25/24 12:03 94 H 21 02/25/24 11:36 100 H 17 02/25/24 11:00 92 H 19 02/25/24 10:30 93 H 21 02/25/24 10:21 96 H 17 O2 Flow Rate 02/26/24 09:45 2 02/26/24 09:35 2 02/26/24 09:25 4 02/26/24 09:15 6 02/26/24 09:05 6 02/26/24 07:38 02/26/24 03:58 02/25/24 23:15 02/25/24 21:57 02/25/24 19:46 02/25/24 17:57 02/25/24 14:55 02/25/24 14:00 02/25/24 13:30 02/25/24 13:06 02/25/24 12:42 02/25/24 12:03 02/25/24 11:36 02/25/24 11:00 02/25/24 10:30 02/25/24 10:21 Pain Intensity Chest: Pain Intensity: 4 Transfer of Care Handoff Completed per policy Notes Mental Status: alert / awake / arousable Patient Amnestic to Procedure: Yes Nausea / Vomiting: adequately controlled Pain: adequately controlled Airway Patency, RR, SpO2: see Notes below (2L NC) BP & HR: stable & adequate Hydration State: stable & adequate Anesthetic Complications: no major complications apparent
[2024-02-26] MEDS ORDERED: NON-FORMULARY MEDICATION (Sildenafil 50 mg tablet) PO PRN (10:07)
--- NOTE | 2024-02-26 20:49 | Hospitalist Progress Note ---
Date of Service February 26, 2024 Assessment & Plan (1) Acute gangrenous cholecystitis: Plan: s/p lap mckenzie by Dr Bass this am grossly the gall bladder was gangrenous EBL minimal; no complications tolerated surgery from a cardiopulmonary perspective defer diet advancement to gen surg cont IV fluids, but given his diastolic dysfunction grade 2 on echo, will lower fluid rate to 50cc/hr repeat LFTs in am - noted that his t.bili ajith to 2 this am cont IV unasyn (2) Elevated bilirubin: Plan: 2nd to #1 obtain repeat LFTs am if t.bili rises further or fails to come down would need MRCP to r/o choledocholithiasis (3) Leukocytosis: Plan: 2nd to #1 thus far blood cx's negative cont IV unasyn repeat cbc am (4) CAD (coronary artery disease): Plan: s/p 2-vessel CABG 2021 in [place] also had MV repair at that time at time of admission ruled out for ACS cont asa cont BB cont statin (5) Hyperglycemia: Plan: a1c 6.1% c/w pre-DM will inform patient of this dx (6) Abnormal CT of the abdomen: Plan: ?bladder wall thickening obtained u/a and urine cx - pending (7) Hyperlipidemia: Plan: cont statin Plan left message for pt's son on his voicemail yesterday evening updated pt's by phone this evening appreciate Dr Bass's assistance Admission and Anticipated Discharge Date Admission Date: February 25, 2024 Subjective saw patient post-op from his lap mckenzie during surgery the gall bladder was noted to be gangrenous despite such his surgery went well w/o apparent complications when I saw him on the tele floor he was tired and felt a little confused and "out of it" from the anesthesia he denied any dyspnea, chest pain, abd pain, nausea or emesis tele overnight wnl Review of Systems Review of Systems: gen - no fevers or chills cv - no chest pain or orthopnea/pnd pulm - no dyspnea or cough Physical Exam Physical Exam: gen - NAD; looks tired eyes - no icterus mouth - MMM neck - no JVD heart - RRR, s1 s2, no murmur lungs - CTA b/l abd - soft, minimal incisional tenderness, mildly distended, BS+ ext - no edema, pulses 2+ b/l skin - multiple incisions abdominal wall clean Results & Data Results & Data Vital Signs (Past 12 Hours) Vital Signs Temp Pulse Pulse Pulse Resp BP Pulse Ox 02/26/24 20:04 36.8 C 79 18 114/67 95 02/26/24 15:25 36.9 C 74 18 132/79 95 02/26/24 14:54 75 02/26/24 11:26 36.4 C L 71 18 119/75 94 02/26/24 10:55 36.4 C L 73 18 119/75 95 02/26/24 10:28 36.6 C 72 18 114/74 94 02/26/24 10:00 02/26/24 10:00 36.6 C 76 18 94/62 L 92 02/26/24 09:50 36.6 C 76 18 121/76 92 02/26/24 09:45 79 18 118/70 94 02/26/24 09:35 37.1 C 82 18 105/67 94 02/26/24 09:25 83 16 113/74 94 02/26/24 09:15 80 18 122/72 94 02/26/24 09:05 36.2 C L 81 12 137/83 95 O2 Del Method O2 Flow Rate 02/26/24 20:04 Room Air 02/26/24 15:25 Room Air 02/26/24 14:54 02/26/24 11:26 Nasal Cannula 3 02/26/24 10:55 Nasal Cannula 3 02/26/24 10:28 Nasal Cannula 3 02/26/24 10:00 Nasal Cannula 3 02/26/24 10:00 Nasal Cannula 3 02/26/24 09:50 Room Air 3 02/26/24 09:45 Nasal Cannula 2 02/26/24 09:35 Nasal Cannula 2 02/26/24 09:25 Oxymask 4 02/26/24 09:15 Oxymask 6 02/26/24 09:05 Oxymask 6 Laboratory Results Laboratory Results - last 24 hr 02/26/24 06:01 WBC 24.40 H RBC 5.17 Hgb 15.9 Hct 47.7 MCV 92.3 MCH 30.8 MCHC 33.3 RDW Std Deviation 45.3 RDW Coeff of Rocio 13.3 Plt Count 210 MPV 9.4 PT 12.0 INR 1.1 APTT 31 PTT Ratio 1.2 Sodium 136 Potassium 4.2 Chloride 101 Carbon Dioxide 29 Anion Gap 6 BUN 11 Creatinine 1.00 Est Cr Clr Drug Dosing 73.8 Est GFR ( Amer) 89.9 Est GFR (Non-Af Amer) 77.5 BUN/Creatinine Ratio 11.0 Glucose 125 H Estimat Average Glucose 128 Hemoglobin A1c 6.1 H Calcium 9.2 Total Bilirubin 2.0 H Direct Bilirubin 0.3 H AST 20 ALT 26 Alkaline Phosphatase 81 Total Protein 6.9 Albumin 4.0 PG Care Time/CCT Total # of Minutes Spent Total Time Spent with Patient: Total time spent is greater than 50% in coordination of care (as documented) at patient's floor/unit and/or counseling patient: Coding Level of Care Code 16047 SUB INP/OBS CARE 235MIN Diagnoses Acute gangrenous cholecystitis K81.0 Elevated bilirubin R17 Leukocytosis D72.829 CAD (coronary artery disease) I25.[address] of the abdomen R93.5 Hyperlipidemia E78.5
--- NOTE | 2024-02-27 05:42 | Surgery Progress Note ---
Date of Service February 27, 2024 Assessment & Plan (1) Cholecystitis: Plan: Status post laparoscopic cholecystectomy on 02/26/2024 (postop day #1) Continue current diet with plans to advance to solids later this morning Continue analgesics as needed Continue antiemetics if needed Continue IV fluids for hydration and discontinue once oral intake is adequate Continue antibiotics in the form of Unasyn Encourage use of incentive spirometer Mobilize as able Check a.m. labs when available Patient remains hospitalized consideration should be given to placing the patient on chemical DVT prophylaxis with Lovenox or subcutaneous heparin Admission and Anticipated Discharge Date Admission Date: February 25, 2024 Supervising Physician Co-Signing Physician Notes I personally saw and evaluated the patient Galo Rizvi PA-C and agree with the assessment and plan. 68-year-old male with acute cholecystitis, now POD#1 lap mckenzie He has been afebrile and tolerating a diet White blood cell count trending down LFTs trending down He can be discharged from a surgical standpoint today As far as follow-up, he is from [place] can call me for follow-up via telephone or he can see his PCP and a surgeon from the [place] area if desired Will give him a 7 to 10-day course of Augmentin due to severity of his cholecystitis Surgery will sign off at this time, please call with any questions or concerns Subjective Patient is resting comfortably in bed at this time. He notes some abdominal soreness near his incision since surgery. He is tolerating full liquid diet thus far and has had a bowel movement since surgery. He denies any nausea or vomiting. He denies any additional complaints. Physical Exam Gastrointestinal (Abdomen): Abdomen is soft with minimal distention. There is no abdominal rigidity. Surgical incisions are covered with dressings that are clean, dry, and intact. Appropriate tenderness noted near surgical incisions. Results & Data Vital Signs (Past 12 Hours) Vital Signs Temp Pulse Pulse Resp BP Pulse Ox O2 Del Method 02/27/24 03:45 36.8 C 64 16 109/62 93 Room Air 02/26/24 23:33 36.8 C 63 18 121/71 91 Room Air 02/26/24 21:55 62 02/26/24 20:04 36.8 C 79 18 114/67 95 Room Air PG Care Time/CCT Total # of Minutes Spent Total Time Spent with Patient: Total time spent is greater than 50% in coordination of care (as documented) at patient's floor/unit and/or counseling patient: Coding Level of Care Code 04637 Post Operative Follow-Up Diagnoses Cholecystitis K81.9
[2024-02-27 07:27] LABS: Hematocrit (blood only) 36.6 % (42.0-52.0); Mean Corpuscular Hemoglobin 30.3 pg (25.0-34.0); Mean Corpuscular Hgb Conc 32.8 g/dL (32.0-36.0); Mean Corpuscular Volume 92.4 fL (80.0-100.0); Mean Platelet Volume 9.7 fL (9.4-12.4); Platelet Count 169 K/uL (130-400); RDW Coefficient of Variation 12.7 % (11.5-14.5); Red Blood Count 3.96 M/uL (4.70-6.10); White Blood Count 15.87 K/ul (4.8-10.8)
[2024-02-27 07:48] LABS: Albumin Globulin Ratio 1.4 (0.9-2); Albumin Level 3.2 gm/dl (3.4-5.0); BUN Creatinine Ratio 20.7 (10-20); Bilirubin,Total 1.3 mg/dl (0.2-1.0); Calcium 8.4 mg/dl (8.6-10.3); Est GFR (African American) 106.1 ml/min; Est GFR (Non-African American) 91.5 ml/min; Globulin 2.3 gm/dl (2.5-4.0); Potassium 4.2 mmol/L (3.5-5.1); Total Protein 5.5 gm/dl (6.0-8.3)
--- NOTE | 2024-02-27 14:13 | Discharge Summary ---
Date of Service February 27, 2024 Admission HPI Per Admitting Provider Hadley Galeana is a 68yo male with history of CAD presenting with chest pain. Patient has history of CABG x 2V and mitral valve repair performed 2 years ago at [facility] in [place]. Patient follows with Dr. Alexis Garcia in [place]. Patient's prior cardiac issues 2 years ago presented predominantly as exertional heartburn. He reports being fairly in-active but denies exertional chest pain or dyspnea. Around 15:00 he developed upper abdominal pain, bandlike in nature with some radiation into the back. Pain 6/10 in severity. He did not take any medication at home. Pain is non-exertional, non-positional and non-pleuritic. No nausea, vomiting, shortness of breath or diaphoresis. Patient still with some discomfort - 4/10 in severity. He had some improvement with the Morphine, no improvement with the Maalox given. No additional complaints at this time. In the ER patient afebrile, HD stable ER Course: Maalox ASA Morphine 4mg IV x 2 doses Discharge Exam gen - NAD; looks tired eyes - no icterus mouth - MMM neck - no JVD heart - RRR, s1 s2, no murmur lungs - CTA b/l abd - soft, minimal incisional tenderness, mildly distended, BS+ ext - no edema, pulses 2+ b/l skin - multiple incisions abdominal wall clean Discharge Data Allergies Allergy/AdvReac Type Severity Reaction Status Date / Time No Known Allergies Allergy Verified 02/24/24 21:10 Consultations 02/25/24 00:00 ED Decision to Admit Stat 02/25/24 15:56 Consult General Surgery Routine 02/27/24 11:29 Burn CD for patient Routine Procedures Performed Operation Date: 02/26/24 07:30 Actual Procedures p Laparoscopic Cholecystectomy(Not Applicable) - Jon Bass, Ordered Studies 02/25/24 14:06 CT Abd and Pelvis [CT abd pelvis IV con only] Stat Hospital Course (1) Acute gangrenous cholecystitis: s/p lap mckenzie by Dr Bass this am grossly the gall bladder was gangrenous EBL minimal; no complications tolerated surgery from a cardiopulmonary perspective defer diet advancement to gen surg cont IV fluids, but given his diastolic dysfunction grade 2 on echo, will lower fluid rate to 50cc/hr repeat LFTs in am - noted that his t.bili ajith to 2 this am cont IV unasyn (2) Elevated bilirubin: 2nd to #1 obtain repeat LFTs am if t.bili rises further or fails to come down would need MRCP to r/o choledocholithiasis (3) Leukocytosis: 2nd to #1 thus far blood cx's negative cont IV unasyn repeat cbc am (4) CAD (coronary artery disease): s/p 2-vessel CABG 2021 in [place] also had MV repair at that time at time of admission ruled out for ACS cont asa cont BB cont statin (5) Hyperglycemia: a1c 6.1% c/w pre-DM will inform patient of this dx (6) Abnormal CT of the abdomen: ?bladder wall thickening obtained u/a and urine cx - pending (7) Hyperlipidemia: cont statin Plan left message for pt's son on his [email or web address] yesterday evening updated pt's by phone this evening appreciate Dr Bass's assistance Discharge Plan Discharge Items Patient Disposition: Home - Self-Care Reason For Visit: ACUTE CHOLECYSTITIS Discharge Diagnosis: 1. Acute gangrenous cholecystitis with laparoscopic cholecystectomy by Dr Jon Bass - 02/26/24 2. Pre-diabetes - hemoglobin a1c 6.1% (see handouts) Activity: Per Instructions section Lifting: No more than 10 pounds Lifting Comment: x 2 weeks; after 2 weeks can resume normal lifting Bathing Comment: Take dressings off 02/28/24; leave steri strips in place; may shower 02/28/24 Sexual Activity: Wait until after follow-up appointment Exercise/Sports: Wait until after follow-up appointment Driving/Machine Use: NO DRIVING X 7 DAYS Non-emergency contact: Primary Care Provider and Surgeon Call non-emergency contact if: you have any medication questions, your symptoms worsen, your pain is not controlled, your pain is worsening, your pain is unusual for you, your pain is concerning for you, you have a fever, your wound has increased redness, your wound has increased drainage and your wound pain has increased Follow-up/Referrals: Jon Bass DO [Physician] - (please see Dr Bass in 2 weeks OR have your family doctor in [place] refer you to a general surgeon in your hometown) Suhas Marley MD [Primary Care Provider] - (SEE YOUR FAMILY DOCTOR IN [place] WITHIN 1 WEEK ) Diet: Heart Healthy and Low Fat Addtl Attending Provider Instructions: Mr Galeana, You were hospitalized due to acute cholecystitis. This is when the gall bladder becomes acutely sick. A sick gall bladder will cause upper abdominal pain in most cases and other gastrointestinal symptoms. You were given IV antibiotics for the cholecystitis. Blood cultures were taken to ensure you did not have a blood stream infection and these have remained negative. Dr Jon Bass from [facility] General Surgery was consulted, and on 02/26/24 he performed laparoscopic cholecystectomy. At the time of the surgery the gall bladder was gangrenous in appearance which means that the gall bladder was very, very ill. The surgery went well without any significant blood loss or other apparent complications. You are tolerating a diet following your surgery, you have moved your bowels, and your pain is relatively controlled. Your vital signs and labs have remained stable post-operatively. Recommendations - 1. antibiotics - * amoxicillin-clavulanate - 875mg twice daily x 7 days, first dose later today * take with food * most common side effect -- diarrhea 2. pain control - * hydrocodone-acetaminophen - 1 tablet every 6 hours as needed for pain * this is a narcotic pain killer medicine * this medication will cause constipation * this medication will also cause drowsiness; thus, no driving at any time or using heavy machinery while taking this medicine * do not drink alcohol if taking this medicine * note that this pain killer medicine contains tylenol (acetaminophen) in it; thus, do not take eonu-cyu-jdcktlj tylenol if taking the hydrocodone 3. please have your family doctor repeat the following labs in 5-7 days -- CBC, BMP, LFTs (liver function tests) 4. for any constipation issues you can take 1 or both of the following ofpz-tlw-xpkiack medicines - * miralax 1 serving daily * senna/senakot 2 tablets daily 5. you will be sore in your abdomen and tired/fatigued for the next couple of weeks; it is ok to rest when needed, take the pain medicine as needed, etc. 6. taking short, light walks a few times a day will keep you well-conditioned during your recovery, help with your bowels, etc. 7. continue your incentive spirometry breathing device for several more days at home 8. low-fat diet -- see handout 9. your hemoglobin a1c test was 6.1%; this suggests that you are a "pre- diabetic." See handouts on pre-diabetes & the a1c test. At this time there is nothing specific to do other than have good follow-up with your family doctor for this. Your family doctor can repeat your a1c test periodically to keep tabs on the pre-diabetes. 10. since you will be traveling back to [place] soon please be sure to stop and get out of the car about every hour to take a light walk and stretch a bit. This will reduce the risk of getting a DVT blood clot in your legs upon your return home. 11. when you remove the outer dressings from your incision sites tomorrow you will see "steri strips." Leave these strips intact. These strips can get wet in the shower. After showering pat them dry. These strips will naturally fall off over time. Do not pull on them or remove them; again just let them come off over time. NO tub baths or swimming at this time. Follow-up - see separate section Return to [facility] or any hospital if - * you have fever over 100 degrees * you have recurrent abdominal pains * the whites of your eyes turn yellow * you have inability to have a bowel movement or you are not passing gas from your rectum * you have severe nausea/vomiting * you have chest pains or shortness of breath * you have any concerns about your incisions * any other concerns It was our pleasure to care for you! -Dr Daniels Pending Studies at Discharge: Yes Studies:: blood & urine cultures but both are negative to date Stand-Alone Forms: My [facility], Smoking Cessation Medications and DC Order Prescriptions: New amoxicillin-pot clavulanate 875-125 mg tablet 1 tab PO BID 7 Days Qty: 14 0RF Rx Instructions: take with food; first dose evening of 02/27/24. hydrocodone-acetaminophen 5-325 mg tablet 1 tab PO Q6H PRN (Reason: pain) Qty: 20 0RF Continued atorvastatin 40 mg tablet 40 mg PO QPM sertraline 100 mg tablet 100 mg PO QAM atenolol 25 mg tablet 25 mg PO QPM aspirin 81 mg Tablet,Delayed Release (Dr/Ec) 81 mg PO HS Held sildenafil 50 mg tablet 50 mg PO DIRECTED PRN (Reason: Sexual Activity) Hold Instructions: no sexual activity at this time until released by your family doctor or surgeon Discharge Orders: Discharge Order (Routine); Ordered 02/27/24 Ordered By: Rigo Hauser/Other Patient Handouts: Prediabetes, Cholecystectomy, 5 Steps for Eating Healthier, Managing Diabetes: The A1C Test, ED Diet, Low Fat Admission Data Admit Date/Time: 02/25/24 17:00 Attending Provider: Rigo Daniels Admit Provider: Rigo Daniels Primary Care Provider: Suhas Marley Other Providers: Christa Rodriguez; Jon Bass Other Interventions: Discharge Summary Assessment (RN) Last Done: 02/27/24 14:01 Coding Diagnoses Acute gangrenous cholecystitis K81.0 Elevated bilirubin R17 Leukocytosis D72.829 CAD (coronary artery disease) I25.[address] of the abdomen R93.5 Hyperlipidemia E78.5
== END 2024-02-27 16:14 | disposition home or self-care (01) | DRG 419 ==
LOC: ED 20:27 → EDINP 20:27 → SUATTDRO 02-25 00:49 → 2W 02-25 01:45
DX: K81.0 Acute cholecystitis; E78.5 Hyperlipidemia, unspecified; Z79.899 Other long term (current) drug therapy; Z95.4 Presence of other heart-valve replacement; K82.A1 Gangrene of gallbladder in cholecystitis; Z95.1 Presence of aortocoronary bypass graft; R73.03 Prediabetes; Z79.82 Long term (current) use of aspirin; I25.10 Atherosclerotic heart disease of native coronary artery without angina pectoris